=== PATIENT | female | born 1990 | race Caucasian/White ===

== ENCOUNTER 2022-05-01 19:30 | Emergency (ER) | payer SELFPAY ==
[2022-05-01 20:14] LABS: Urine Blood 3+ (Negative); Urine Glucose Negative (Negative); Urine Protein Trace (Negative); Urine Specific Gravity >=1.030 (1.005-1.030); Urine pH 5.5 (5.0-7.0)
[2022-05-01 20:15] LABS: Absolute Lymphocytes (CBC) 3.5 K/uL (0.7-4.9); Hematocrit 42.7 % (36.0-45.0); MPV 8.2 fL (7.6-11.3); RBC Red Blood Cell Count 5.34 M/uL (3.86-4.86)
[2022-05-01 20:29] LABS: Urine Bacteria <20 /HPF (<20); Urine Mucus LIGHT /HPF (NONE SEEN); Urine RBC >50 /HPF (NONE SEEN)
[2022-05-01 20:33] LABS: Potassium 3.5 mmol/L (3.5-5.1)
--- NOTE | 2022-05-01 21:48 | RAD REPORT ---
EXAM DESCRIPTION: US - Transvaginal OB - 05/01/2022 9:39 pm CLINICAL HISTORY: VAGINAL BLEEDING COMPARISON: No comparisons FINDINGS: Single IUP identified. The crown-rump length measures 2 cm which is consistent with 8 week s 2 day. A yolk sac is identified. Measures 9.8 cm. The heart rate is 180 beats/minute. The lef t ovary measures 2.7 cm x 1.2 cm x 1.7 cm with volume of 2.8 cc. Vascular flow is present. The right ovary was not visualized. IMPRESSION: Single viable IUP with positive heart tones measuring 8 weeks 2 days with ELVIA 12/09.
--- NOTE | 2022-05-01 22:30 | EDPHYS ---
Physician Documentation [facility] Name: Vivien Lawson Age: 32 yrs Sex: Female : 1990 Arrival Date: 05/01/2022 Time: 19:32 Bed 4 Private MD: ED Physician Donell Cedillo HPI: 05/01 19:45 This 32 yrs old Female presents to ER via Ambulatory with complaints of Vaginal pm1 Bleeding, + Preg <12wks. 19:45 The patient presents to the emergency department with vaginal bleeding, that is light. pm1 The estimated gestational age is 9 weeks. course: care: private OB physician, jeremy u/s last week. Previous pregnancies: in previous pregnancies patient has had no complications. Associated signs and symptoms: The patient has no apparent associated signs or symptoms, Pertinent negatives: dysuria, fever. The patient has not experienced similar symptoms in the past. 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 - Social history:: Smoking status: Patient denies any tobacco usage or history of. ROS: 19:45 Constitutional: Negative for fever, chills, and weight loss, Cardiovascular: Negative pm1 for chest pain, palpitations, and edema, Respiratory: Negative for shortness of breath, cough, wheezing, and pleuritic chest pain. 19:45 Back: Negative for injury and pain. 19:45 MS/Extremity: Negative for injury and deformity, Skin: Negative for injury, rash, and discoloration, Neuro: Negative for headache, weakness, numbness, tingling, and seizure. 19:45 Abdomen/GI: Positive for abdominal cramps, of the suprapubic area, Negative for nausea, vomiting, and diarrhea. 19:45 : Positive for vaginal bleeding. 19:45 All other systems are negative. Exam: 19:45 Constitutional: This is a well developed, well nourished patient who is awake, alert, pm1 and in no acute distress. Head/Face: Normocephalic, atraumatic. 19:45 Back: No spinal tenderness. No costovertebral tenderness. Full range of motion. Skin: Warm, dry with normal turgor. Normal color with no rashes, no lesions, and no evidence of cellulitis. MS/ Extremity: Pulses equal, no cyanosis. Neurovascular intact. Full, normal range of motion. 19:45 Cardiovascular: Exam negative for acute changes, Rate: normal, Rhythm: regular, Pulses: no pulse deficits are appreciated, Heart sounds: normal. 19:45 Respiratory: Exam negative for acute changes, respiratory distress, shortness of breath. 19:45 Abdomen/GI: Exam negative for acute changes, Inspection: abdomen appears normal, Palpation: abdomen is soft and non-tender, in all quadrants. 19:45 Neuro: Exam negative for acute changes, Orientation: is normal, Mentation: is normal, Motor: is normal, moves all fours. Vital Signs: 19:37 BP 125 / 86; Pulse 105; Resp 18 S; Temp 97.7(O); Pulse Ox 100% on R/A; Weight 97.52 kg bb (R); Height 5 ft. 4 in. (162.56 cm) (R); Pain 0/10; 21:21 BP 119 / 69; Pulse 82; Resp 17; Pulse Ox 100% on R/A; lg3 23:40 BP 124 / 70; Pulse 84; Resp 18 S; Pulse Ox 100% on R/A; lg3 19:37 Body Mass Index 36.90 (97.52 kg, 162.56 cm) bb MDM: 19:44 Patient medically screened. pm1 22:28 Data reviewed: vital signs. Data interpreted: Pulse oximetry: on room air is 100 %. pm1 Interpretation: normal. Counseling: I had a detailed discussion with the patient and/or guardian regarding: the historical points, exam findings, and any diagnostic results supporting the discharge/admit diagnosis, lab results, radiology results, the need for outpatient follow up, an OB/Gyne specialist, Patient has appointment with her OB tomorrow, to return to the emergency department if symptoms worsen or persist or if there are any questions or concerns that arise at home. 05/01 19:45 Order name: Abo/rh Typing pm 05/01 19:45 Order name: Basic Metabolic Panel; Complete Time: 20:49 pm1 05/01 19:45 Order name: CBC with Diff; Complete Time: 20:17 pm1 05/01 19:45 Order name: Quantitative Hcg; Complete Time: 20:49 pm1 05/01 19:45 Order name: Urine Microscopic Only; Complete Time: 20:49 pm1 05/01 20:14 Order name: Urine Dipstick-Ancillary; Complete Time: 20:16 EDTX 05/01 20:15 Order name: US Transvaginal Ob; Complete Time: 22:01 pm1 05/01 21:48 Order name: ABO/RH no charge; Complete Time: 22:01 EDTX 05/01 22:17 Order name: Rh Typing [facility] 05/01 22:17 Order name: Antibody Screen [facility] 05/01 22:17 Order name: Fetalscreen [facility] 05/01 22:17 Order name: Cord Rh type [facility] 05/01 22:18 Order name: Rhogam [facility] 05/01 19:45 Order name: IV Saline Lock; Complete Time: 20:04 pm1 05/01 19:45 Order name: Labs collected and sent; Complete Time: 20:04 pm1 05/01 19:45 Order name: NPO; Complete Time: 20:12 pm1 05/01 19:45 Order name: Urine Dipstick-Ancillary (obtain specimen); Complete Time: 20:04 pm1 05/01 19:45 Order name: Urine Test (obtain specimen); Complete Time: 20:04 pm1 Administered Medications: 23:52 Drug: RhoGAM (Human) 300 mcg Route: IM; Site: left gluteus; lg3 05/02 00:00 Follow up: Response: No adverse reaction lg3 Disposition Summary: 05/01/22 22:29 Discharge Ordered Location: Home pm1 Problem: new pm1 Symptoms: have improved pm1 Condition: Stable pm1 Diagnosis - Threatened pm1 Followup: pm1 - With: Emergency Department - When: As needed - Reason: Worsening of condition Followup: pm1 - With: Private Physician - When: Tomorrow - Reason: Recheck today's complaints, Continuance of care, Re-evaluation by your physician Discharge Instructions: - Discharge Summary Sheet pm1 - Threatened Miscarriage pm1 - Activity Restriction During pm1 Forms: - Medication Reconciliation Form pm1 - Thank You Letter pm1 - Antibiotic Education pm1 - Prescription Opioid Use pm1 Signatures: Dispatcher [employer] EDNicole Plaza, RN RN bb Jesse Petersen, WAREHOUSE SHIPPING RECEIVING CLERK WAREHOUSE SHIPPING RECEIVING CLERK pm1 Nadia Powell RN RN lg3
--- NOTE | 2022-05-01 22:30 | ER ---
Nurse's Notes [facility] Name: Vivien Lawson Age: 32 yrs Sex: Female : 1990 Arrival Date: 05/01/2022 Time: 19:32 Bed 4 Private MD: Diagnosis: Threatened Presentation: 05/01 19:37 Chief complaint: Patient states: she is 8 weeks has been having some brown bb spotting the last couple of days but about 30 minutes ago started bleeding heavier but is not having real abdominal pain at this time and has not noticed any clots. Coronavirus screen: At this time, the client does not indicate any symptoms associated with coronavirus-19. Ebola Screen: No symptoms or risks identified at this time. Initial Sepsis Screen: Does the patient meet any 2 criteria? No. Patient's initial sepsis screen is negative. Does the patient have a suspected source of infection? No. Patient's initial sepsis screen is negative. Risk Assessment: Do you want to hurt yourself or someone else? Patient reports no desire to harm self or others. Onset of symptoms was May 01, 2022. 19:37 Method Of Arrival: Ambulatory bb 19:37 Acuity: RADHA 3 bb Triage Assessment: 19:39 General: Behavior is anxious. General: Appears in no apparent distress. Pain: Denies bb pain. Neuro: Level of Consciousness is awake, alert, obeys commands, Oriented to person, place, time, situation. Cardiovascular: Capillary refill < 3 seconds Patient's skin is warm and dry. Respiratory: Respiratory effort is unlabored. : Reports vaginal bleeding that is. Derm: Skin is pink, warm \T\ dry. Musculoskeletal: Circulation, motion, and sensation intact. 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 - Social history:: Smoking status: Patient denies any tobacco usage or history of. Screenin:04 Abuse screen: Denies threats or abuse. Denies injuries from another. Nutritional lg3 screening: No deficits noted. Tuberculosis screening: No symptoms or risk factors identified. Fall Risk None identified. Assessment: 20:04 General: Appears in no apparent distress. comfortable, Behavior is calm, cooperative. lg3 Pain: Denies pain. Neuro: No deficits noted. Level of Consciousness is awake, alert, obeys commands, Oriented to person, place, time, situation. Cardiovascular: No deficits noted. Denies chest pain, shortness of breath, Capillary refill < 3 seconds Clubbing of nail beds is present JVD is absent Patient's skin is warm and dry. Respiratory: No deficits noted. Airway is patent Trachea midline Respiratory effort is even, unlabored, Respiratory pattern is regular, symmetrical. GI: Abdomen is round non-distended, Abd is soft and non tender X 4 quads. : Reports discharge, from vagina that is bloody, vaginal bleeding that is spotty. EENT: No deficits noted. No signs and/or symptoms were reported regarding the EENT system. Derm: No deficits noted. No signs and/or symptoms reported regarding the dermatologic system. Skin is intact, is healthy with good turgor, Skin is dry, Skin temperature is warm. Musculoskeletal: No deficits noted. No signs and/or symptoms reported regarding the musculoskeletal system. Circulation, motion, and sensation intact. Range of motion: intact in all extremities. 21:21 Reassessment: Patient appears in no apparent distress at this time. No changes from lg3 previously documented assessment. Patient and/or family updated on plan of care and expected duration. Pain level reassessed. Patient is alert, oriented x 3, equal unlabored respirations, skin warm/dry/pink. 22:27 Reassessment: Patient appears in no apparent distress at this time. No changes from lg3 previously documented assessment. Patient and/or family updated on plan of care and expected duration. Pain level reassessed. Patient is alert, oriented x 3, equal unlabored respirations, skin warm/dry/pink. 23:40 Reassessment: Patient appears in no apparent distress at this time. No changes from lg3 previously documented assessment. Patient and/or family updated on plan of care and expected duration. Pain level reassessed. Patient is alert, oriented x 3, equal unlabored respirations, skin warm/dry/pink. Vital Signs: 19:37 BP 125 / 86; Pulse 105; Resp 18 S; Temp 97.7(O); Pulse Ox 100% on R/A; Weight 97.52 kg bb (R); Height 5 ft. 4 in. (162.56 cm) (R); Pain 0/10; 21:21 BP 119 / 69; Pulse 82; Resp 17; Pulse Ox 100% on R/A; lg3 23:40 BP 124 / 70; Pulse 84; Resp 18 S; Pulse Ox 100% on R/A; lg3 19:37 Body Mass Index 36.90 (97.52 kg, 162.56 cm) ED Course: 19:32 Patient arrived in ED. jj6 19:39 Triage completed. bb 19:39 Arm band placed on Patient placed in waiting room, Patient notified of wait time. bb Family accompanied patient. 19:44 Jesse Petersen, CRYSTAL is PHCP. pm1 19:44 Donell Cedillo MD is Attending Physician. pm1 19:47 Nadia Powell, GAL is Primary Nurse. lg3 20:04 Patient has correct armband on for positive identification. Placed in gown. Bed in low lg3 position. Call light in reach. Side rails up X 1. Client placed on continuous cardiac and pulse oximetry monitoring. NIBP monitoring applied. hospital monitor on. Door closed. Noise minimized. Warm blanket given. Family accompanied patient. 20:04 Inserted saline lock: 20 gauge in right antecubital area, using aseptic technique. zm Blood collected. 20:04 Abo/rh Typing Sent. zm 20:04 Basic Metabolic Panel Sent. zm 20:04 CBC with Diff Sent. zm 20:04 Quantitative Hcg Sent. zm 20:05 Urine Microscopic Only Sent. zm 20:15 Abo/rh Typing Sent. lg3 20:15 Basic Metabolic Panel Sent. lg3 20:15 CBC with Diff Sent. lg3 20:15 Quantitative Hcg Sent. lg3 21:41 US Transvaginal Ob In Process Unspecified. EDMS 23:44 Rhogam Sent. lg3 05/02 00:00 No provider procedures requiring assistance completed. IV discontinued, intact, lg3 bleeding controlled, No redness/swelling at site. Pressure dressing applied. Administered Medications: 05/01 23:52 Drug: RhoGAM (Human) 300 mcg Route: IM; Site: left gluteus; lg3 05/02 00:00 Follow up: Response: No adverse reaction lg3 Medication: 00:01 VIS not applicable for this client. lg3 Outcome: 05/01 22:29 Discharge ordered by . pm1 05/02 00:00 Discharged to home ambulatory, with significant other. lg3 Condition: stable Discharge instructions given to patient, Instructed on discharge instructions, follow up and referral plans. Demonstrated understanding of instructions, follow-up care. 00:01 Patient left the ED. lg3 Signatures: Dispatcher [employer] EDMS Nicole Carrizales RN RN bb Jesse Petersen, CRYSTAL KNIT GOODS CUTTER HAND pm1 Nadia Powell RN RN lg3 Ellen Rodriguez6 Jayda García
[2022-05-02 01:32] VITALS: TEMP 97.7; O2SAT 100
[2022-05-02 01:35] VITALS: BP 124/70
== END 2022-05-02 00:01 | disposition home or self-care (01) ==
LOC: ER 19:30
DX: O20.0 Threatened abortion (principal); Z3A.09 9 weeks gestation of pregnancy
CPT/HCPCS: 36415; 76817; 80048; 81003; 81015; 84702; 85025; 86850; 86900; 86901; 96372; 99284; J2790

== ENCOUNTER 2023-03-13 07:41 | Emergency (ER) | payer SELFPAY ==
[2023-03-13 08:36] LABS: Absolute Lymphocytes (CBC) 2.2 K/uL (0.7-4.9); Hematocrit 41.6 % (36.0-45.0); Lymphocytes % 23.4 % (15.3-44.8); MCV 79.9 fL (80-100); MPV 7.6 fL (7.6-11.3); RBC Red Blood Cell Count 5.21 M/uL (3.86-4.86)
[2023-03-13 09:05] LABS: Calcium Oxalate Crystals- Ur Few /HPF (None Seen); Specific Gravity 1.017 (1.005-1.030); Urine Bacteria <20 /HPF (<20); Urine Bilirubin NEGATIVE (Negative); Urine Blood 3+ (OVER) (Negative); Urine Clarity Turbid (Clear); Urine Color Light-Brown (Yellow); Urine Glucose NEGATIVE (Negative); Urine Mucus Slight /HPF (None Seen); Urine Protein TRACE (Negative); Urine RBC >50 /HPF (None Seen); Urine Urobilinogen Normal (Normal); Urine pH 5.5 (5.0-7.0)
[2023-03-13 09:08] LABS: Potassium 3.5 mEq/L (3.5-5.1)
--- NOTE | 2023-03-13 09:25 | RAD REPORT ---
EXAM DESCRIPTION: US - Transvaginal OB - 03/13/2023 8:52 am CLINICAL HISTORY: with pelvic pain COMPARISON: None. FINDINGS: The uterus measures 7 x 5 x 6 centimeters. The uterus is retroverted. The endometrial str ipe measures 8 millimeters. A gestational sac is not seen. Ovaries are normal in size and echotexture.. The right and left adnexa unremarkable No significant free fluid IMPRESSION: Nonvisualization of a gestational sac within the endometrium. These findings could represent an early intrauterine in which the gestational sac is not se en. and even an ectopic can also result in this appearance. This all should be cor related clinically and with serial beta HCG levels. Followup endovaginal sonogram in 1 week recommend ed
--- NOTE | 2023-03-13 09:49 | ER ---
Nurse's Notes [facility] Name: Vivien Lawson Age: 32 yrs Sex: Female : 1990 Arrival Date: 03/13/2023 Time: 07:41 Bed 19 Private MD: Diagnosis: Threatened Presentation: 03/13 07:50 Chief complaint: Patient states: 5 weeks 5 days , started bleeding and having iw back pain this morning, bleeding is like a period, G3, P1 , miscarriage last April. Coronavirus screen: At this time, the client does not indicate any symptoms associated with coronavirus-19. Ebola Screen: Patient negative for fever greater than or equal to 101.5 degrees Fahrenheit, and additional compatible Ebola Virus Disease symptoms Patient denies exposure to infectious person. Patient denies travel to an Ebola-affected area in the 21 days before illness onset. No symptoms or risks identified at this time. 07:50 Method Of Arrival: Ambulatory iw 07:50 Initial Sepsis Screen: Does the patient meet any 2 criteria? No. Patient's initial iw sepsis screen is negative. Does the patient have a suspected source of infection? No. Patient's initial sepsis screen is negative. Risk Assessment: Do you want to hurt yourself or someone else? Patient reports no desire to harm self or others. 07:52 Onset of symptoms was March 13, 2023. 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 - Social history:: Smoking status: unknown. Screenin:00 [facility] ED Fall Risk Assessment (Adult) Score/Fall Risk Level 0 - 2 = Low Risk. Abuse eh3 screen: Denies threats or abuse. Denies injuries from another. Nutritional screening: No deficits noted. Tuberculosis screening: No symptoms or risk factors identified. Assessment: 08:15 General: Appears comfortable, Behavior is calm, cooperative. Pain: Complains of pain in aa5 back Pain currently is 5 out of 10 on a pain scale. Quality of pain is described as aching. Neuro: Level of Consciousness is awake, alert, obeys commands, Oriented to person, place, time, situation. Cardiovascular: Patient's skin is warm and dry. Respiratory: Airway is patent Respiratory effort is even, unlabored, Respiratory pattern is regular, symmetrical. GI: Abdomen is round non-distended, Bowel sounds present X 4 quads. Abd is soft and non tender X 4 quads. : Reports vaginal bleeding that is bright red, light flow, Denies burning with urination, inability to void, urinary frequency. EENT: No signs and/or symptoms were reported regarding the EENT system. Derm: Skin is pink, warm \T\ dry. Musculoskeletal: Range of motion: intact in all extremities. 08:30 Reassessment: Urine sent to lab . aa5 09:00 Reassessment: Patient appears in no apparent distress at this time. Patient and/or eh3 family updated on plan of care and expected duration. Pain level reassessed. Patient is alert, oriented x 3, equal unlabored respirations, skin warm/dry/pink. Vital Signs: 07:50 BP 124 / 88; Pulse 101; Resp 16; Temp 98.3; Pulse Ox 100% on R/A; iw ED Course: 07:45 Patient arrived in ED. mr 07:52 Triage completed. iw 07:53 Kacey Hodgson RN is Primary Nurse. aa5 07:53 Lazara Adkins FNP-C is PHCP. kb 07:53 Ganesh Johnson MD is Attending Physician. kb 08:00 Arm band placed on. iw 08:29 Initial lab(s) drawn, by me, sent to lab. Inserted saline lock: 20 gauge in right aa5 antecubital area, using aseptic technique. Blood collected. 08:53 US Transvaginal Ob In Process Unspecified. EDMS 09:00 Report given to GAL Stevens. aa5 09:00 Patient has correct armband on for positive identification. Bed in low position. Call 3 light in reach. Side rails up X2. Adult w/ patient. 10:18 No provider procedures requiring assistance completed. IV discontinued, intact, eh3 bleeding controlled, No redness/swelling at site. Pressure dressing applied. Administered Medications: No medications were administered Medication: 10:18 VIS not applicable for this client. eh3 Outcome: 09:48 Discharge ordered by . alek 10:18 Discharged to home ambulatory, with significant other. eh3 10:18 Condition: stable 10:18 Discharge instructions given to patient, significant other, Instructed on discharge instructions, follow up and referral plans. Demonstrated understanding of instructions, follow-up care. 10:19 Patient left the ED. eh3 Signatures: Dispatcher [employer] EDMS Lazara Adkins, JASON-Mira SLAB GRINDER-CkTanya Juárez Angelic Steve, GAL RN iw Kacey Hodgson, RN RN aa5 Hilda Alarcon RN RN eh3 Corrections: (The following items were deleted from the chart) 08:00 07:50 BP 124 / 88; Pulse 101bpm; Resp 16bpm; Pulse Ox 100% RA; iw iw
--- NOTE | 2023-03-13 09:49 | EDPHYS ---
Physician Documentation [facility] Name: Vivien Lawson Age: 32 yrs Sex: Female : 1990 Arrival Date: 03/13/2023 Time: 07:41 Bed 19 Private MD: ED Physician Ganesh Johnson HPI: 03/13 07:58 This 32 yrs old Female presents to ER via Ambulatory with complaints of Vaginal kb Bleeding, + Preg <12wks. 07:58 The patient presents to the emergency department with abdominal pain, vaginal bleeding, kb that is moderate. The estimated gestational age is 5 weeks. course: care: private OB physician. Previous pregnancies: in previous pregnancies patient has had. Associated signs and symptoms: Pertinent positives: abdominal pain, vaginal bleeding. The patient has not experienced similar symptoms in the past. The patient has not recently seen a physician. 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 - Social history:: Smoking status: unknown. ROS: 07:58 Constitutional: Negative for fever, chills, and weight loss. kb 07:58 Abdomen/GI: Positive for abdominal pain. 07:58 : Positive for vaginal bleeding. 07:58 All other systems are negative. Exam: 07:58 Constitutional: This is a well developed, well nourished patient who is awake, alert, kb and in no acute distress. Head/Face: Normocephalic, atraumatic. ENT: Moist Mucous membranes Cardiovascular: Regular rate and rhythm with a normal S1 and S2. No gallops, murmurs, or rubs. No pulse deficits. Respiratory: Respirations even and unlabored. No increased work of breathing. Talking in full sentences Skin: Warm, dry with normal turgor. Normal color. MS/ Extremity: Pulses equal, no cyanosis. Neurovascular intact. Full, normal range of motion. Neuro: Awake and alert, GCS 15, oriented to person, place, time, and situation. Moves all extremities. Normal gait. 07:58 Abdomen/GI: Inspection: abdomen appears normal, Bowel sounds: normal, Palpation: soft, in all quadrants, mild abdominal tenderness, in the suprapubic area, right lower quadrant and left lower quadrant. Vital Signs: 07:50 BP 124 / 88; Pulse 101; Resp 16; Temp 98.3; Pulse Ox 100% on R/A; iw MDM: 07:53 Patient medically screened. kb 07:58 Differential diagnosis: threatened Ab, inevitable Ab, complete Ab. Data reviewed: vital kb signs, nurses notes. 09:46 Counseling: I had a detailed discussion with the patient and/or guardian regarding: the kb historical points, exam findings, and any diagnostic results supporting the discharge/admit diagnosis, lab results, radiology results, the need for outpatient follow up, an OB/Gyne specialist, to return to the emergency department if symptoms worsen or persist or if there are any questions or concerns that arise at home. ED course: Educated on diagnostic results and printed copy given to patient. Educated to follow up with BRICK VENEER MAKER. Pt's OB is in [place] and pt will call today. 03/13 07:54 Order name: Abo/rh Typing; Complete Time: 08:58 kb 03/13 07:54 Order name: Basic Metabolic Panel; Complete Time: 09:14 kb 03/13 07:54 Order name: CBC with Diff; Complete Time: 08:57 kb 03/13 07:54 Order name: Test, Urine; Complete Time: 09:14 kb 03/13 07:54 Order name: Quantitative Hcg; Complete Time: 09:14 kb 03/13 07:54 Order name: Urinalysis w/ reflexes; Complete Time: 09:14 kb 03/13 09:09 Order name: Urine Culture EDTX 03/13 07:54 Order name: US Transvaginal Ob; Complete Time: 09:31 kb 03/13 07:54 Order name: IV Saline Lock; Complete Time: 08:29 kb 03/13 07:54 Order name: Labs collected and sent; Complete Time: 08:29 kb 03/13 07:54 Order name: NPO; Complete Time: 08:04 kb Administered Medications: No medications were administered Disposition: 12:49 Co-signature as Attending Physician, Ganesh Johnson MD I reviewed the patient's care rn provided by the Advanced Practice Provider and agree with the diagnosis and treatment plan. Disposition Summary: 03/13/23 09:48 Discharge Ordered Location: Home kb Condition: Stable kb Diagnosis - Threatened kb Followup: kb - With: Emergency Department - When: As needed - Reason: Worsening of condition Followup: kb - With: Private Physician - When: 2 - 3 days - Reason: Recheck today's complaints, Continuance of care, Re-evaluation by your physician Discharge Instructions: - Discharge Summary Sheet kb - Threatened Miscarriage, [id number] kb - Vaginal Bleeding During , First Trimester, [id number] kb Forms: - Medication Reconciliation Form kb - Thank You Letter kb - Antibiotic Education kb - Prescription Opioid Use kb Signatures: Dispatcher [employer] EDMS Lazara Adkins, MANAGER FOOD-C MANAGER FOOD-Vasiliyb Angelic Steve, RN Ganesh Lira MD MD rn Hall, Erin, RN RN eh3
[2023-03-13 10:33] VITALS: BP 124/88; TEMP 98.3; O2SAT 100
== END 2023-03-13 10:19 | disposition home or self-care (01) ==
LOC: ER 07:41
DX: O20.0 Threatened abortion (principal); Z3A.01 Less than 8 weeks gestation of pregnancy
CPT/HCPCS: 36415; 76817; 80048; 81001; 81025; 84702; 85025; 86900; 86901; 87086; 87088; 99284